=== PATIENT | female | born 1940 | race Caucasian/White ===

== ENCOUNTER 2022-10-21 14:30 | Inpatient (IN) | payer MEDICARE, OTHER ==
[~2022-10-21] VITALS: Ht 165.1 cm; Wt 93.0 kg
--- NOTE | 2022-10-21 14:30 | NUR ---
pt admitted via EMS from home. C/o SOB HX of CHD, speaks Macedonian accompaniede by daughter. Placed on 2LNC saturation 95%. VSS. Pt seen and examined by ER
[2022-10-21] MEDS ORDERED: FUROSEMIDE 20 MG/2 ML VIAL IVP ONE (14:45)
[2022-10-21] MEDS ORDERED: FUROSEMIDE 40 MG/4 ML VIAL ONE (14:54)
[2022-10-21] MEDS ORDERED: HYDR100T27 PO (14:57)
[2022-10-21] MEDS ORDERED: FURO-152 PO (14:57)
[2022-10-21] MEDS ORDERED: CARV25TA2 PO (14:57)
[2022-10-21] MEDS ORDERED: CALC-896 PO (14:57)
[2022-10-21] MEDS ORDERED: AMLO5TAB4 PO (14:57)
[2022-10-21] MEDS ORDERED: ISOS60TA72 PO (14:57)
[2022-10-21] MEDS ORDERED: DOXA2TAB2 PO (14:57)
[2022-10-21] MEDS ORDERED: ASPI81TA31 PO (14:57)
[2022-10-21 15:05] LABS: HEMATOCRIT 27.6 % (31.2-41.9); MEAN CORPUSCULAR VOLUME 82.6 fL (75.5-95.3); PLATELET COUNT (AUTO) 666 K/uL (179-408)
[2022-10-21 15:16] LABS: *BILIRUBIN,URIN NEGATIVE (NEGATIVE); *BLOOD, URINE NEGATIVE (NEGATIVE); *CLARITY,URINE CLEAR (CLEAR); *COLOR,URINE YELLOW (YELLOW); *KETONES,URINE NEGATIVE (NEGATIVE); *UROBILINOGEN,URINE 0.2 E.U./dl (NORMAL); LEUKOCYTE ESTERASE ,URINE NEGATIVE (NEGATIVE); NITRITE, URINE NEGATIVE (NEGATIVE); PH,URINE 5.5 (5.0-8.0); UGLUCOSE NEGATIVE (NEGATIVE)
[2022-10-21 15:23] LABS: CARBON DIOXIDE 20 mmol/L (21-32); CHLORIDE 95 mmol/L (98-107); CREATININE 3.6 mg/dL (0.6-1.3); GLUCOSE 69 mg/dL (74-106); POTASSIUM 5.1 mmol/L (3.5-5.1); UREA NITROGEN, BLOOD 74 mg/dL (7-18)
[2022-10-21 15:38] LABS: BACTERIA,URINE NONE SEEN /HPF (NONE SEEN); RBC,URINE NONE SEEN /HPF (0-3); SQUAMOUS EPITHELIAL CELL,UR FEW /HPF (NONE SEEN); WBC,URINE 0-3 /HPF (0-3)
[2022-10-21 15:40] LABS: ALANINE AMINOTRANSFERASE 22 U/L (14-59); ALKALINE PHOSPHATASE 77 U/L (50-136); BILIRUBIN,DIRECT 0.1 mg/dL (0.0-0.2); BILIRUBIN,TOTAL 0.3 mg/dL (0.2-1.0); TOTAL PROTEIN, SERUM 6.7 g/dL (6.4-8.2)
[2022-10-21 15:50] LABS: ASPARTATE AMINOTRANSFERASE 17 U/L (15-37)
[2022-10-21 16:00] LABS: BAND % (MANUAL) 9 % (0-10); LYMPHOCYTES % (MANUAL) 10 % (20-40); MONOCYTES % (MANUAL) 4 % (2-10); NEUTROPHILS % (MANUAL) 77 % (42-75)
[2022-10-21] MEDS ORDERED: levoFLOXacin 750 MG/D5W 150 ML PIGGYBACK IV ONE (16:30)
--- NOTE | 2022-10-21 16:37 | NUR ---
pt sitting in bed, awake, productive cough, per daughter translating breathing a little easier, VSS, 150cc clear yellow urine. Blood sugar rechecked per order Dr. Sheikh Blood sugar 96.
[2022-10-21] MEDS ORDERED: hydrALAZINE HCL 20 MG/1 ML VIAL IV PRN (16:45)
[2022-10-21] MEDS ORDERED: DEXTROSE 50% 50 ML DISP.SYRIN IV PRN (16:45)
[2022-10-21] MEDS ORDERED: ALBUTEROL SULFATE 8 GM HFA.AER.AD IH PRN (16:45)
[2022-10-21] MEDS ORDERED: ONDANSETRON 4 MG/2 ML VIAL IV PRN (16:45)
[2022-10-21] MEDS ORDERED: MORPHINE SULFATE 2 MG/1 ML DISP.SYRIN IVP PRN (16:45)
[2022-10-21] MEDS ORDERED: ACETAMINOPHEN 325 MG TABLET PO PRN (16:45)
[2022-10-21] MEDS: DOCUSATE SODIUM 100 MG CAPSULE PO SCH ×2 (17:00→20:39)
[2022-10-21] MEDS ORDERED: AMLODIPINE 5 MG TABLET PO SCH (17:00)
--- NOTE | 2022-10-21 18:00 | NUR ---
Resting comfortably in bed. VSS, daughter at bedside translating. Responded to lasix with 400cc clear yellow urine.
--- NOTE | 2022-10-21 18:30 | NUR ---
Report called to 3rd floor. Pt transported.
--- NOTE | 2022-10-21 19:05 | NUR ---
Received patient from ER via gurney, alert and oriented x3, speaks [place]uran. Sinus rhythm on tele. IV access to left hand intact and patent. Routine admission care rendered, oriented to room, BR, TV and call light. Care plan initiated. No adverse reaction from IV antibiotic. Needs assessed and attended to.
[2022-10-21 19:48] VITALS: BP 146/58
[2022-10-21] MEDS: CARVEDILOL 25 MG TABLET PO SCH (20:40)
[2022-10-21] MEDS: HEPARIN SODIUM,PORCINE 5,000 UNITS/ML VIAL SQ SCH (20:45)
[2022-10-21] MEDS: BLOOD SUGAR DIAGNOSTIC 1 EACH STRIP VI SCH (20:48)
[2022-10-21] MEDS ORDERED: FUROSEMIDE 40 MG/4 ML VIAL IV SCH (21:00)
[2022-10-21] MEDS ORDERED: ALBUTEROL SULFATE 2.5 MG/ 0.5 ML NEBU IH PRN (21:30)
[2022-10-21] MEDS ORDERED: CEFEPIME HCL 1 G VIAL ONE (22:19)
[2022-10-21] MEDS: CEFEPIME HCL 1 G in IV DEXTROSE 5% 50 ML IV SCH (22:27)
[2022-10-21] MEDS ORDERED: BUMETANIDE INJ 2 MG in IV DEXTROSE 5% 32 ML IV ONE (23:30)
[2022-10-22 00:12] VITALS: BP 118/38
[2022-10-22] MEDS ORDERED: BUMETANIDE 2.5 MG/10 ML VIAL ONE (00:48)
[2022-10-22 04:30] VITALS: BP 126/57
[2022-10-22] MEDS: BLOOD SUGAR DIAGNOSTIC 1 EACH STRIP VI SCH ×4 (06:36→21:36)
[2022-10-22 06:41] LABS: MEAN CORPUSCULAR VOLUME 82.8 fL (75.5-95.3); PLATELET COUNT (AUTO) 632 K/uL (179-408)
[2022-10-22 07:19] LABS: ALANINE AMINOTRANSFERASE 29 U/L (14-59); ALKALINE PHOSPHATASE 76 U/L (50-136); ASPARTATE AMINOTRANSFERASE 15 U/L (15-37); BILIRUBIN,TOTAL 0.3 mg/dL (0.2-1.0); CARBON DIOXIDE 21 mmol/L (21-32); CHLORIDE 96 mmol/L (98-107); CREATINE KINASE, TOTAL 336 U/L (26-192); CREATININE 3.5 mg/dL (0.6-1.3); GLUCOSE 116 mg/dL (74-106); MAGNESIUM 2.5 mg/dL (1.8-2.4); PHOSPHOROUS 7.1 mg/dL (2.5-4.9); TOTAL PROTEIN, SERUM 6.7 g/dL (6.4-8.2); UREA NITROGEN, BLOOD 73 mg/dL (7-18)
[2022-10-22] MEDS ORDERED: FUROSEMIDE 40 MG/4 ML VIAL IV ONE (08:15)
--- NOTE | 2022-10-22 08:39 | NUR ---
PATIENT SEEN AND EXAMINED BY DR GAUTHIER WITH NEW ORDERS AND NOTED.
[2022-10-22] MEDS: DOXAZOSIN 2 MG TABLET PO SCH (09:00)
[2022-10-22] MEDS: DOCUSATE SODIUM 100 MG CAPSULE PO SCH ×2 (09:00→16:50)
[2022-10-22] MEDS ORDERED: hydrALAZINE HCL 50 MG TABLET PO SCH (09:00)
[2022-10-22] MEDS: ISOSORBIDE MONONITRATE 60 MG TAB.SR.24H PO SCH (09:00)
[2022-10-22 09:10] LABS: *CREATININE,URINE 17.1 mg/dL (30-125); *URINE TOTAL PROTEIN RANDOM 51.9 mg/dL (<150/24HR)
[2022-10-22] MEDS: ASPIRIN 81 MG TAB.CHEW PO SCH (09:25)
[2022-10-22] MEDS: CARVEDILOL 25 MG TABLET PO SCH ×2 (09:26→17:15)
[2022-10-22] MEDS: HEPARIN SODIUM,PORCINE 5,000 UNITS/ML VIAL SQ SCH ×2 (09:27→17:16)
[2022-10-22] MEDS: FLUTICASONE/VILANTEROL 1 EACH BLST.W.DEV INH SCH (09:30)
[2022-10-22 09:33] LABS: *BILIRUBIN,URIN NEGATIVE (NEGATIVE); *BLOOD, URINE 3+ (NEGATIVE); *CLARITY,URINE CLEAR (CLEAR); *COLOR,URINE YELLOW (YELLOW); *KETONES,URINE NEGATIVE (NEGATIVE); *UROBILINOGEN,URINE 0.2 E.U./dl (NORMAL); LEUKOCYTE ESTERASE ,URINE TRACE (NEGATIVE); NITRITE, URINE NEGATIVE (NEGATIVE); UGLUCOSE NEGATIVE (NEGATIVE)
[2022-10-22 10:02] LABS: BACTERIA,URINE FEW /HPF (NONE SEEN)
[2022-10-22 11:40] VITALS: BP 123/47
[2022-10-22] MEDS: INSULIN REGULAR, HUMAN 300 UNIT/3 ML VIAL SQ PRN ×2 (11:44→21:39)
--- NOTE | 2022-10-22 15:00 | NUR ---
ECHO COMPLETED ORDERED AND ITS 55-60 EF AND ULTRA SOUND IS CONSISTENT WITH RENAL DISEASE WITH KIDNEY STONE SO IS AT HER BEDSIDE DENIES DISCOMFORTS ALL NEEDS ANTICIPATED AND SATISFIED TELE IS SR NOT IN DISTRESS AT THIS TIME.
[2022-10-22 16:00] VITALS: BP 145/44
[2022-10-22] MEDS ORDERED: INSU100I26 SQ (16:08)
[2022-10-22] MEDS ORDERED: INSU100I4 SQ (16:08)
[2022-10-22] MEDS ORDERED: GLIM4TAB PO (16:10)
--- NOTE | 2022-10-22 18:00 | NUR ---
RESTING IN ROOM AT THIS TIME SON STILL AT THE BEDSIDE NOT IN DISTRESS AT THIS TIME.
[2022-10-22] MEDS ORDERED: DOCUSATE SODIUM 100 MG CAPSULE PO PRN (18:45)
[2022-10-22 20:00] VITALS: BP 122/36
--- NOTE | 2022-10-22 20:00 | NUR ---
Received patient lying in bed with daughter at bedside in no apparent distress. AAO X3, IV intact and patent. Pringle catheter intact and patent. Will continue plan of care
[2022-10-22] MEDS ORDERED: CLOTRIMAZOLE 1% VAG CREAM 45 GM TUBE VG SCH (21:00)
--- NOTE | 2022-10-22 21:15 | NUR ---
PATIENT ON 2LPM VIA NC, 99% O2 SAT, WEANED DOWN TO 1LPM, CURRENT 02 SAT 96%
[2022-10-22] MEDS: INSULIN GLARGINE,HUM 300 UNITS/3 ML CARTRIDGE SQ SCH (21:38)
[2022-10-22] MEDS ORDERED: GUAIFENESIN/DEXTROMETHORPHAN 5 ML UDC PO PRN (21:45)
[2022-10-22] MEDS: CEFEPIME HCL 1 G in IV DEXTROSE 5% 50 ML IV SCH (21:54)
[2022-10-23] VITALS: BP 130/57
[2022-10-23] MEDS ORDERED: ALBUTEROL SULFATE 2.5 MG/3 ML NEBU NEB PRN (00:30)
[2022-10-23 04:00] VITALS: BP 103/49
[2022-10-23 06:34] LABS: HEMATOCRIT 24.9 % (31.2-41.9); MEAN CORPUSCULAR HEMOGLOBIN 27.7 uug (24.7-32.8); MEAN CORPUSCULAR VOLUME 82.3 fL (75.5-95.3); PLATELET COUNT (AUTO) 495 K/uL (179-408)
[2022-10-23 06:52] LABS: CARBON DIOXIDE 22 mmol/L (21-32); CHLORIDE 101 mmol/L (98-107); CREATININE 3.6 mg/dL (0.6-1.3); GLUCOSE 98 mg/dL (74-106); MAGNESIUM 2.2 mg/dL (1.8-2.4); PHOSPHOROUS 6.7 mg/dL (2.5-4.9); POTASSIUM 4.9 mmol/L (3.5-5.1); UREA NITROGEN, BLOOD 75 mg/dL (7-18)
[2022-10-23] MEDS: BLOOD SUGAR DIAGNOSTIC 1 EACH STRIP VI SCH ×4 (06:52→21:05)
--- NOTE | 2022-10-23 07:00 | NUR ---
Patient slept well, AAO x3 occasionally forgetful. Argentine speaking, daughter translates. IV intact and patent, Pringle catheter draining well. Needs attended to and met. Continue plan of care.
[2022-10-23] MEDS: FLUTICASONE/VILANTEROL 1 EACH BLST.W.DEV INH SCH (08:34)
[2022-10-23] MEDS: ASPIRIN 81 MG TAB.CHEW PO SCH (08:35)
[2022-10-23] MEDS: HEPARIN SODIUM,PORCINE 5,000 UNITS/ML VIAL SQ SCH ×2 (08:37→17:10)
[2022-10-23] MEDS: ISOSORBIDE MONONITRATE 60 MG TAB.SR.24H PO SCH (08:39)
[2022-10-23] MEDS: CARVEDILOL 25 MG TABLET PO SCH ×3 (08:39→17:09)
[2022-10-23] MEDS: DOXAZOSIN 2 MG TABLET PO SCH (08:40)
[2022-10-23] MEDS: BENZONATATE 100 MG CAPSULE PO SCH ×3 (08:41→21:14)
[2022-10-23 09:31] VITALS: BP 131/45
[2022-10-23] MEDS ORDERED: FUROSEMIDE 40 MG/4 ML VIAL IV SCH ×2 (10:30→21:00)
[2022-10-23 11:07] LABS: A/G RATIO 0.8 (0.7-1.7); ALBUMIN 2.5 g/dL (2.9-4.4); ALPHA-1-GLOBULIN 0.4 g/dL (0.0-0.4); ALPHA-2-GLOBULIN 1.2 g/dL (0.4-1.0); GAMMA GLOBULIN 0.7 g/dL (0.4-1.8); GLOBULIN, TOTAL 3.3 g/dL (2.2-3.9); M-SPIKE Not Observed g/dL (Not Observed)
[2022-10-23 11:27] VITALS: BP 140/40
[2022-10-23] MEDS: INSULIN REGULAR, HUMAN 300 UNIT/3 ML VIAL SQ PRN ×2 (12:18→21:14)
[2022-10-23 16:02] VITALS: BP 138/52
[2022-10-23 20:00] VITALS: BP 136/46
[2022-10-23] MEDS ORDERED: POLYVINYL ALCOHOL OPHT DROPS 15 ML BOTTLE EACHEYE PRN (20:00)
[2022-10-23] MEDS ORDERED: POLYVINYL ALCOHOL OPHT DROPS 15 ML BOTTLE ONE (20:51)
[2022-10-23] MEDS ORDERED: CLOTRIMAZOLE 1% VAG CREAM 45 GM TUBE VG PRN (21:00)
[2022-10-23] MEDS: CEFEPIME HCL 1 G in IV DEXTROSE 5% 50 ML IV SCH (21:05)
[2022-10-23] MEDS: INSULIN GLARGINE,HUM 300 UNITS/3 ML CARTRIDGE SQ SCH (21:07)
[2022-10-24] VITALS: BP 139/47
[2022-10-24 04:00] VITALS: BP 128/45
[2022-10-24] MEDS: BENZONATATE 100 MG CAPSULE PO SCH (05:46)
[2022-10-24] MEDS: BLOOD SUGAR DIAGNOSTIC 1 EACH STRIP VI SCH ×2 (06:07→11:58)
[2022-10-24 06:42] LABS: HEMATOCRIT 27.4 % (31.2-41.9); MEAN CORPUSCULAR HEMOGLOBIN 27.5 uug (24.7-32.8); MEAN CORPUSCULAR VOLUME 83.3 fL (75.5-95.3); PLATELET COUNT (AUTO) 536 K/uL (179-408)
[2022-10-24 06:52] LABS: CARBON DIOXIDE 24 mmol/L (21-32); CHLORIDE 102 mmol/L (98-107); CREATININE 3.5 mg/dL (0.6-1.3); GLUCOSE 109 mg/dL (74-106); MAGNESIUM 2.1 mg/dL (1.8-2.4); POTASSIUM 4.8 mmol/L (3.5-5.1); UREA NITROGEN, BLOOD 74 mg/dL (7-18)
--- NOTE | 2022-10-24 06:59 | NUR ---
Patient rested well in between care; no acute distress; VSS; daughter at bedside; assisted with hygiene needs; continue to monitor; continue plan of care.
--- NOTE | 2022-10-24 08:00 | NUR ---
Awake, alert, oriented x 4, Nigerian speaking, sitting at the edge of bed. Pringle catheter removed as ordered. Assisted to bedside commode then back to bed
[2022-10-24] MEDS ORDERED: FUROSEMIDE 40 MG TABLET PO SCH (09:00)
[2022-10-24] MEDS ORDERED: FURO40TA5 PO (09:24)
[2022-10-24] MEDS ORDERED: BENZ-38 PO (09:24)
[2022-10-24] MEDS ORDERED: CEFP200T14 PO (09:24)
[2022-10-24] MEDS: FLUTICASONE/VILANTEROL 1 EACH BLST.W.DEV INH SCH (10:42)
[2022-10-24] MEDS: ASPIRIN 81 MG TAB.CHEW PO SCH (10:42)
[2022-10-24] MEDS: CARVEDILOL 25 MG TABLET PO SCH (10:42)
[2022-10-24] MEDS: HEPARIN SODIUM,PORCINE 5,000 UNITS/ML VIAL SQ SCH (10:43)
[2022-10-24 11:18] VITALS: BP 144/53
[2022-10-24 11:20] VITALS: BP 144/53
[2022-10-24] MEDS: INSULIN REGULAR, HUMAN 300 UNIT/3 ML VIAL SQ PRN (12:01)
--- NOTE | 2022-10-24 15:55 | NUR ---
With discharge order to home. Saline lock removed. DC instruction given to patient/daughter, verbalized understanding. Went home per wheelchair in fair condition, not in distress, afebrile.
== END 2022-10-24 15:55 | disposition home health service (06) | DRG 177 ==
LOC: ER 14:30 → TELE3 19:13
PROVIDERS: ADMIT Internal Medicine; ATTEND Internal Medicine
DX: J15.6 Pneumonia due to other Gram-negative bacteria (principal); I50.33 Acute on chronic diastolic (congestive) heart failure; J96.01 Acute respiratory failure with hypoxia; I13.0 Hypertensive heart and chronic kidney disease with heart failure and stage 1 through stage 4 chronic kidney disease, or unspecified chronic kidney disease; E87.1 Hypo-osmolality and hyponatremia; E44.0 Moderate protein-calorie malnutrition; J98.11 Atelectasis; N17.9 Acute kidney failure, unspecified; Z66 Do not resuscitate; Z20.822 Contact with and (suspected) exposure to COVID-19; Z88.0 Allergy status to penicillin; I25.2 Old myocardial infarction; N20.0 Calculus of kidney; H54.3 Unqualified visual loss, both eyes; Z68.34 Body mass index [BMI] 34.0-34.9, adult; D75.839 Thrombocytosis, unspecified; E11.319 Type 2 diabetes mellitus with unspecified diabetic retinopathy without macular edema; E11.22 Type 2 diabetes mellitus with diabetic chronic kidney disease; N18.9 Chronic kidney disease, unspecified; D63.1 Anemia in chronic kidney disease; I25.10 Atherosclerotic heart disease of native coronary artery without angina pectoris; Z98.61 Coronary angioplasty status; Z79.82 Long term (current) use of aspirin; Z79.899 Other long term (current) drug therapy; Z86.19 Personal history of other infectious and parasitic diseases; Z86.69 Personal history of other diseases of the nervous system and sense organs; D64.9 Anemia, unspecified
CPT/HCPCS: 36415; 70030-TC; 71045; 76770; 83605; 83690; 83735; 83970; 84100; 84155; 84165; 84300; 84484; 85025; 87040; 93005; 93307; 94664; A4663; G0378; J0692; J1644; J1815; J1940; J1956; J2405; J3490; J3535